=== PATIENT | male | born 1990 | race Two or more races ===

== ENCOUNTER 2024-12-07 07:35 | Day surgery (SDC) | payer MEDICAID, SELFPAY ==
--- NOTE | 2024-12-04 06:40 | EKG_ITS ---
[facility], [place] Test Date: 2024-12-04 Pat Name: JOSE MILLER Department: Room: - Gender: Male Patient Registration Rep: [id number] : [id number] Requested By: Judd Briggs Order Number: [id number] Reading MD: Judd Briggs Measurements Intervals [place] Rate: 65 P: 8 AR: 176 QRS: 52 QRSD: 83 T: 43 QT: 365 QTc: 382 Interpretive Statements SINUS RHYTHM WITH SINUS ARRHYTHMIA No previous ECG available for comparison /[id number]/[email or web address]/[id number]
[2024-12-04 09:58] VITALS: BMI 34.4
[2024-12-04 10:32] LABS: Collection Type, Urine Clean Catch; Squamous Epithelial Cell,Urine 0 /hpf (0-5)
[2024-12-04 12:07] LABS: Basophils # (Auto) 0.1 Thou/mm3 (0.0-0.2); Basophils % (Auto) 1 % (0-2.5); Eosinophils # (Auto) 0.1 Thou/mm3 (0.0-0.5); Eosinophils % (Auto) 1 % (0-10); Hemoglobin 15.1 g/dL (13.5-16.0); Immature Granulocytes % (Auto) 1 % (0-0); Immature Granulocytes Auto 0.05 Thou/mm3 (0.00-0.00); Lymphocytes % (Auto) 35 % (10-50); Mean Corpuscular HGB Conc 33.6 g/dl (31.0-37.0); Mean Corpuscular Hemoglobin 28.1 pg (25.0-35.0); Mean Corpuscular Volume 84 fL (80-100); Monocytes # (Auto) 0.6 Thou/mm3 (0.0-0.8); Monocytes % (Auto) 7 % (0-12); Neutrophils # (Auto) 4.8 Thou/mm3 (1.8-7.7); Neutrophils % (Auto) 55 % (37-80); Nucleated Red Blood Cell % 0 /100 WBC (0); Platelet Count 244 Thou/mm3 (140-440); RDW Standard Deviation 41.2 fL (35.1-43.9); Red Blood Count 5.37 Miln/mm3 (4.50-5.90); White Blood Count 8.6 Thou/mm3 (3.8-10.6)
[2024-12-04 12:12] LABS: Partial Thromboplastin Time 29.2 Seconds (22.0-36.0)
[2024-12-04 12:13] LABS: Bacteria,Urine Rare; Bilirubin,Urine Negative (Negative); Blood,Urine Negative (Negative); Clarity,Urine Clear (Clear/Hazy); Color,Urine Lt-Yellow (Lt Yel-Yel); Glucose, Urine 4+ (Negative); Ketones,Urine Negative (Negative); Leukocyte Esterase,Urine Negative (Negative); Nitrite,Urine Negative (Negative); Protein,Urine Negative (Neg - Trace); RBC,Urine 7 /hpf (0-3); Specific Gravity,Urine 1.036 (1.001-1.035); Urobilinogen,Urine Negative mg/dL (0.0-1.0); WBC,Urine 1 /hpf (0-5)
[2024-12-04 12:19] LABS: Alanine Aminotransferase 97 U/L (10-49); Albumin, Serum 5.2 gm/dL (3.5-5.0); Albumin/Globulin Ratio 1.6 (1.2-2.2); Alkaline Phosphatase 158 U/L (46-116); Anion Gap 10 (7-16); Aspartate Amino Transferase 62 U/L (0-34); BUN/Creatinine Ratio 21 Ratio (12-20); Bilirubin,Total 0.5 mg/dL (0.3-1.2); Blood Urea Nitrogen 19 mg/dL (9-23); Calcium 10.1 mg/dL (8.3-10.6); Calcium (Corrected) 10.1 mg/dL (8.5-10.1); Carbon Dioxide 27.2 mMol/L (20.0-31.0); Chloride 103 mMol/L (98-107); Creatinine (Component) 0.9 mg/dL (0.6-1.3); Globulin 3.2 gm/dL (2.3-3.5); Glucose 143 mg/dL (74-106); Osmolality,Calculated 283 (275-295); Potassium 4.8 mMol/L (3.4-5.1); Sodium 140 mMol/L (136-145); Total Protein 8.4 gm/dL (5.7-8.2); eGFR > 60 See Note
[2024-12-07] VITALS (7 sets, daily range): BP systolic 107–126; BP diastolic 64–75; PULSE 72–82; RESP 12–20; TEMP 36.9–37; O2SAT 98–100; BMI 34.0
--- NOTE | 2024-12-07 09:14 | SUR.PREOP ---
Patient expressed gratitude for visit before their procedure.
--- NOTE | 2024-12-07 11:12 | PD.SUROPNT ---
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 12/07/2024 Findings This patient had 7 cm x 8 cm x 3 cm large lipoma in the occipital region it was below the fascia and right on the periosteum. Procedure Description Patient was evaluated in the preop area. The procedure was discussed in detail. Informed consent was obtained. The site and site was marked. Patient was then taken to the operating room and positioned in the prone position after general anesthesia was administered. The back of the head was shaved and prepped and draped in usual manner. Local anesthesia 0.5% Marcaine with epinephrine is used as a wide field block and hemostasis adjunct. A transverse incision is made and deepened through the layers of skin and subcutaneous tissue and the fascia needed to be divided. The galea aponeurotic is completely divided. There is a lipoma as previously described on the periosteum. Gentle dissection is carried out and the lipoma is removed. Hemostasis is achieved. The operative field is thoroughly irrigated with saline solution and then the scalp was closed with 2-0 nylon interrupted stitches. Sterile dressing was applied. Estimated loss of blood about 5 cc. Complications none. Anesthesia GETA Drains None. Pathology / specimen Other (Lipoma occipital region) Estimated Blood Loss 5 Condition Stable Disposition PACU Surgeon Judd Briggs MD Surgical Staff Operation Date: 12/07/24 10:15 <No data on this case meets the specified criteria> SHAWN Aguilera computed tomography technologist. Víctor GARDNER singeing torch operator
--- NOTE | 2024-12-07 11:13 | SUR.PHASEI ---
1113 Patient arrived to recovery, awake and talking with staff, on oxygen 8L via oxy mask, breathing unlabored, vital signs stable, denies pain, dressing intact to posterior head; sutures, telfa, fluffs, medipore tape, no bleeding noted, report received from Víctor GARDNER and Dr. Snell
--- NOTE | 2024-12-07 11:58 | SUR.PHASEII ---
1158 Patient meets discharge criteria from recovery, awake and alert, breathing unlabored, vital signs stable, denies pain, dressing intact; no bleeding noted, patient drinking water; denies nausea, able to dress himself into his clothing, discharge instructions given to patient and patients brother, brother signed discharge instructions. Patient given all her belongings prior to discharge, transported via wheelchair and left in a private vehicle.
== END 2024-12-07 11:58 | disposition home or self-care (01) ==
PROVIDERS: PCP Family Medicine; Referring Provider Specialist; Visit Provider Specialist
PROC: (CPT 21014; principal; 2024-12-07 10:15)
DX: D17.0 Benign lipomatous neoplasm of skin and subcutaneous tissue of head, face and neck (principal); E11.9 Type 2 diabetes mellitus without complications; E66.9 Obesity, unspecified; I10 Essential (primary) hypertension; Z79.84 Long term (current) use of oral hypoglycemic drugs; Z79.899 Other long term (current) drug therapy; Z68.34 Body mass index [BMI] 34.0-34.9, adult
CPT/HCPCS: 21014; 36415; 80053; 81001; 85025; 85730; 93005; A4217; A4649; J2250; J2405; J2704; J2765; J3010; J3490; A9270